=== PATIENT | male | born 1950 | race Two or more races ===

== ENCOUNTER 2022-12-09 10:50 | Inpatient (IN) | payer OTHER ==
[~2022-12-09] VITALS: Ht 167.6 cm; Wt 56.7 kg
[2022-12-09] MEDS ORDERED: BRILINTA90 MG PO (11:12)
[2022-12-09] MEDS ORDERED: GLUMETZA500 MG PO (11:13)
[2022-12-09] MEDS ORDERED: ZESTRIL5 MG PO (11:13)
[2022-12-09] MEDS ORDERED: TOPROL XL25 M1 PO (11:13)
[2022-12-09] MEDS ORDERED: FOLIC ACID20 MG PO (11:14)
[2022-12-09] MEDS ORDERED: FEOSOL325 MG PO (11:14)
[2022-12-09] MEDS ORDERED: ALDACTONE25 MG PO (11:15)
[2022-12-09] MEDS ORDERED: DOK100 M1 PO (11:15)
[2022-12-09 13:10] LABS: MEAN CELL VOLUME 105.5 fL (80.0-100.00); MEAN CORPUSCULAR HEMOGLOBIN 35.1 pg (27.00-32.0); MEAN CORPUSCULAR HGB CONC 33.2 g/dl (32.0-36.0); PLATELET COUNT 206 K/uL (150-450); RED BLOOD COUNT 3.98 M/uL (4.00-6.00); RED CELL DISTRIBUTION WIDTH 12.6 % (11.5-14.5)
[2022-12-09 13:34] LABS: ALBUMIN 3.5 gm/dL (3.4-5.0); BILIRUBIN TOTAL 1.9 mg/dL (0.3-1.2); CALCIUM 8.8 mg/dL (8.5-10.1); GFR 15.27; GLOBULINA 2.8 G/DL (2.4-3.5); POTASSIUM 4.11 mEq/L (3.5-5.1); TOTAL PROTEIN 6.3 gm/dL (6.4-8.2)
[2022-12-09 13:44] LABS: CREATININE SERUM 3.92 mg/dL (0.70-1.30); PARTIAL THROMBOPLASTIN TIME 31.6 SECONDS (22.0-34.0)
[2022-12-10 07:46] LABS: HEMATOCRIT 37.4 % (39.0-48.0); HEMOGLOBIN 12.5 g/dL (13-16.00); MEAN CELL VOLUME 105.8 fL (80.0-100.00); MEAN CORPUSCULAR HEMOGLOBIN 35.3 pg (27.00-32.0); MEAN CORPUSCULAR HGB CONC 33.4 g/dl (32.0-36.0); PLATELET COUNT 169 K/uL (150-450); RED BLOOD COUNT 3.54 M/uL (4.00-6.00); RED CELL DISTRIBUTION WIDTH 12.6 % (11.5-14.5)
[2022-12-10 07:57] LABS: PARTIAL THROMBOPLASTIN TIME 35.2 SECONDS (22.0-34.0)
[2022-12-10 08:12] LABS: ALBUMIN 3.2 gm/dL (3.4-5.0); BILIRUBIN TOTAL 1.82 mg/dL (0.3-1.2); BILIRUBIN,CONJUGATED 0.43 mg/dL (0.0-0.2); CALCIUM 8.5 mg/dL (8.5-10.1); GLOBULINA 2.5 G/DL (2.4-3.5); POTASSIUM 4.27 mEq/L (3.5-5.1); TOTAL PROTEIN 5.7 gm/dL (6.4-8.2)
[2022-12-10 08:27] LABS: GFR 15.09
[2022-12-10 08:28] LABS: CREATININE SERUM 3.96 mg/dL (0.70-1.30)
[2022-12-10 09:07] LABS: ERYTHROCYTE SEDIMENTATION RATE 58 mm/hr
[2022-12-11 08:11] LABS: ALBUMIN 2.9 gm/dL (3.4-5.0); BILIRUBIN TOTAL 2.23 mg/dL (0.3-1.2); CALCIUM 8.3 mg/dL (8.5-10.1); GFR 14.14; GLOBULINA 2.8 G/DL (2.4-3.5); POTASSIUM 4.04 mEq/L (3.5-5.1); TOTAL PROTEIN 5.7 gm/dL (6.4-8.2)
[2022-12-11 10:29] LABS: CREATININE SERUM 4.19 mg/dL (0.70-1.30)
[2022-12-12 07:16] LABS: ALBUMIN 2.6 gm/dL (3.4-5.0); BILIRUBIN TOTAL 1.57 mg/dL (0.3-1.2); GFR 14.79; GLOBULINA 2.6 G/DL (2.4-3.5); POTASSIUM 3.99 mEq/L (3.5-5.1); TOTAL PROTEIN 5.2 gm/dL (6.4-8.2)
[2022-12-12 09:30] LABS: CREATININE SERUM 4.03 mg/dL (0.70-1.30)
[2022-12-13 06:35] LABS: HEMATOCRIT 34.7 % (39.0-48.0); MEAN CELL VOLUME 103.4 fL (80.0-100.00); MEAN CORPUSCULAR HEMOGLOBIN 35.7 pg (27.00-32.0); MEAN CORPUSCULAR HGB CONC 34.6 g/dl (32.0-36.0); PLATELET COUNT 177 K/uL (150-450); RED BLOOD COUNT 3.35 M/uL (4.00-6.00); RED CELL DISTRIBUTION WIDTH 12.9 % (11.5-14.5)
[2022-12-13 06:57] LABS: ALBUMIN 2.8 gm/dL (3.4-5.0); BILIRUBIN TOTAL 1.26 mg/dL (0.3-1.2); CALCIUM 8.4 mg/dL (8.5-10.1); GFR 14.5; GLOBULINA 2.7 G/DL (2.4-3.5); POTASSIUM 4.06 mEq/L (3.5-5.1); TOTAL PROTEIN 5.5 gm/dL (6.4-8.2)
[2022-12-13 09:29] LABS: CREATININE SERUM 4.1 mg/dL (0.70-1.30)
== END 2022-12-13 15:32 | disposition home or self-care (01) | DRG 393 ==
LOC: ER 10:51 → MEDI 20:16
PROVIDERS: General Practice; Internal Medicine Infectious Disease; Internal Medicine Nephrology; ADMIT Internal Medicine; ATTEND Internal Medicine
PROC: BW21YZZ Computerized Tomography (CT Scan) of Abdomen and Pelvis using Other Contrast (ICD-10-PCS; principal; 2022-12-09)
PROC: BT43ZZZ Ultrasonography of Bilateral Kidneys (ICD-10-PCS; 2022-12-09)
PROC: B246ZZZ Ultrasonography of Right and Left Heart (ICD-10-PCS; 2022-12-10)
DX: K43.6 Other and unspecified ventral hernia with obstruction, without gangrene (principal); A41.9 Sepsis, unspecified organism; N17.8 Other acute kidney failure; E86.0 Dehydration; I12.9 Hypertensive chronic kidney disease with stage 1 through stage 4 chronic kidney disease, or unspecified chronic kidney disease; E11.22 Type 2 diabetes mellitus with diabetic chronic kidney disease; N18.9 Chronic kidney disease, unspecified; Z79.84 Long term (current) use of oral hypoglycemic drugs; Z95.0 Presence of cardiac pacemaker